=== PATIENT | male | born 1970 | race Caucasian/White ===

== ENCOUNTER 2016-09-16 16:42 | Inpatient (IN) | payer MEDICARE, MEDICAID ==
[~2016-09-16] VITALS: Ht 179.1 cm; Wt 115.9 kg
[~2016-09-16 16:42] MED LIST: ATEN-102 PO; OMEG306C PO; PAXI20TA26 PO; SAW160TA PO; VITA20002 PO
[2016-09-16 16:44] VITALS: BP 132/84; PULSE 70; RESP 20; TEMP 98.1; O2SAT 96
--- NOTE | 2016-09-16 18:01 | PD ---
HPI Chief Complaint: Psychiatric Symptoms Time Seen by Provider: 18:01 Travel History International Travel<30 days: No Contact w/Intl Traveler<30days: No Traveled to known affect area: No History of Present Illness HPI 46-year-old male with history of hydrocephalus, with shunt placement, hypertension, presents to the emergency department for evaluation of depression. Patient has been under a lot of stress and more more depressed. He has been having suicidal thoughts. He mentioned this to his primary care provider who advised to come to the emergency department for psychiatric evaluation. Patient states he has no active plan. No recent illnesses, fever, or chills. No acute medical needs at this time. PFSH Past Medical History Arthritis: Yes Asthma: Yes Anxiety: Yes Depression: Yes Cancer: No Cardiovascular Problems: No High Cholesterol: Yes Diabetes: No Diminished Hearing: No Endocrine: No Genitourinary: No Headaches: Yes Hepatitis: No Hiatal Hernia: No Hypertension: Yes Immune Disorder: No Musculoskeletal: Yes (arthritis in r hip) Neurologic: Yes (shunt last replaced 1997) Psychiatric: No Reproductive: No Respiratory: Yes (asthma as child) Immunizations Current: No Sleep Apnea: Yes Thyroid Disease: No Past Surgical History AICD: No Body Medical Devices: shunt , pins in l hip, bubble in l eye Eye Surgery: Yes (bilat cataract ) Joint Replacement: No Neurologic Surgery: Yes (shunt placement and revisions) Pacemaker: No Social History Alcohol Use: No Tobacco Use: No Substance Use: No Allergies-Medications (Allergen,Severity, Reaction): Coded Allergies: No Known Allergies (Unverified , 11/24/15) Reported Meds & Prescriptions Reported Meds & Active Scripts Active Reported Vitamin D-3 (Cholecalciferol) 2 000 Tab Unknown Dose PO DAILY Fish Oil ([place]-3 Fatty Acids) 306 Mg Cap Unknown Dose PO DAILY Saw [place] 160 Mg Tab Unknown Dose PO DAILY Paxil (Paroxetine HCl) 20 Mg Tab 20 Mg PO DAILY Atenolol 50 Mg Tab 50 Mg PO DAILY pt states he is out but may get rx filled today Review of Systems Except as stated in HPI: all other systems reviewed are Neg Physical Exam Narrative GENERAL: Well-nourished male patient, ambulatory and in no acute distress SKIN: Warm and dry. HEAD: Atraumatic. Normocephalic. EYES: Pupils are unequal with the left pupil 3 mm and the right being 2 mm. Patient is having surgery on the left adnexa week. No scleral icterus. No injection or drainage. ENT: No nasal bleeding or discharge. Mucous membranes pink and moist. NECK: Trachea midline. No JVD. CARDIOVASCULAR: Regular rate and rhythm. No murmur appreciated. RESPIRATORY: No accessory muscle use. Clear to auscultation. Breath sounds equal bilaterally. GASTROINTESTINAL: Abdomen soft, non-tender, nondistended. Hepatic and splenic margins not palpable. MUSCULOSKELETAL: No obvious deformities. No clubbing. No cyanosis. No edema. NEUROLOGICAL: Awake and alert. No obvious cranial nerve deficits. Motor grossly within normal limits. Normal speech. Data Data Last Documented VS Vital Signs Date Time Temp Pulse Resp B/P Pulse Ox O2 Delivery O2 Flow Rate FiO2 09/16/16 16:44 98.1 70 20 132/84 96 Room Air Orders Complete Blood Count With Diff (09/16/16 17:58) Basic Metabolic Panel (Bmp) (09/16/16 17:58) Psych Screen (09/16/16 17:58) Drug Screen, Random Urine (09/16/16 17:58) Alcohol (Ethanol) (09/16/16 17:58) Labs Laboratory Tests Test 09/16/16 18:20 White Blood Count 8.1 TH/MM3 Red Blood Count 5.07 MIL/MM3 Hemoglobin 15.5 GM/DL Hematocrit 45.2 % Mean Corpuscular Volume 89.3 FL Mean Corpuscular Hemoglobin 30.5 PG Mean Corpuscular Hemoglobin 34.2 % Concent Red Cell Distribution Width 13.2 % Platelet Count 235 TH/MM3 Mean Platelet Volume 8.1 FL Neutrophils (%) (Auto) 72.8 % Lymphocytes (%) (Auto) 20.3 % Monocytes (%) (Auto) 6.1 % Eosinophils (%) (Auto) 0.3 % Basophils (%) (Auto) 0.5 % Neutrophils # (Auto) 5.9 TH/MM3 Lymphocytes # (Auto) 1.6 TH/MM3 Monocytes # (Auto) 0.5 TH/MM3 Eosinophils # (Auto) 0.0 TH/MM3 Basophils # (Auto) 0.0 TH/MM3 CBC Comment DIFF FINAL Differential Comment Sodium Level 144 MEQ/L Potassium Level 3.6 MEQ/L Chloride Level 109 MEQ/L Carbon Dioxide Level 28.1 MEQ/L Anion Gap 7 MEQ/L Blood Urea Nitrogen 12 MG/DL Creatinine 1.15 MG/DL Estimat Glomerular Filtration 68 ML/MIN Rate Random Glucose 102 MG/DL Calcium Level 8.4 MG/DL Urine Opiates Screen NEG Urine Barbiturates Screen NEG Urine Amphetamines Screen NEG Urine Benzodiazepines Screen NEG Urine Cocaine Screen NEG Urine Cannabinoids Screen NEG Ethyl Alcohol Level LESS THAN 3 MG/DL MDM Medical Decision Making Medical Screen Exam Complete: Yes Emergency Medical Condition: Yes Medical Record Reviewed: Yes Differential Diagnosis Mood disorder versus personality disorder versus adjustment reaction disorder Narrative Course 46-year-old male presents to emergency room for evaluation. Patient has no acute medical needs. CBC and BMP are without acute concern. Toxicology is negative. Patient is medically cleared to undergo psychiatric screening for further evaluation and disposition. Mental health screening discussed with the patient. Psychiatric screen ordered. Diagnosis Primary Impression: Adjustment disorder with depressed mood Additional Impression: Suicidal thoughts Condition: Vee Santos Sep 16, 2016 18:01
[2016-09-16 18:48] LABS: AUTOMATED NEUTROPHIL # 5.9 TH/MM3 (1.8-7.7); BASOPHIL % 0.5 % (0.0-2.0); EOSINOPHIL % 0.3 % (0.0-4.0); HEMATOCRIT 45.2 % (39.0-51.0); HEMO FLAGS DIFF FINAL; LYMPH % 20.3 % (9.0-44.0); LYMPHOCYTE # 1.6 TH/MM3 (1.0-4.8); MEAN CELL VOLUME 89.3 FL (80.0-100.0); MEAN CORPUSCULAR HEMOGLOBIN 30.5 PG (27.0-34.0); MEAN CORPUSCULAR HGB CONC 34.2 % (32.0-36.0); MONO % 6.1 % (0.0-8.0); NEUT % 72.8 % (16.0-70.0); PLATELET COUNT 235 TH/MM3 (150-450); RED BLOOD COUNT 5.07 MIL/MM3 (4.50-5.90); RED CELL DISTRIBUTION WIDTH 13.2 % (11.6-17.2); WHITE BLOOD COUNT 8.1 TH/MM3 (4.0-11.0)
[2016-09-16 19:04] LABS: AMPHETAMINE, URINE NEG (NEG); BARBITURATES, URINE NEG (NEG); COCAINE, URINE NEG (NEG)
[2016-09-16 19:12] LABS: ANION GAP 7 MEQ/L (5-15); BICARBONATE 28.1 MEQ/L (21.0-32.0); BLOOD UREA NITROGEN 12 MG/DL (7-18); CHLORIDE 109 MEQ/L (98-107); GLOMERULAR FILTRATION RATE 68 ML/MIN (>89); POTASSIUM 3.6 MEQ/L (3.5-5.1); SODIUM (NA) 144 MEQ/L (136-145)
[2016-09-16 22:57] VITALS: BP_SYST 129; BP_SYST 140; BP_DIAS 64; BP_DIAS 68; PULSE 62; PULSE 64; RESP 18; O2SAT 96; O2SAT 97
[2016-09-16] MEDS ORDERED: ATEN50TA PO (23:01)
[2016-09-16] MEDS ORDERED: PAXI20TA PO (23:01)
[2016-09-16] MEDS ORDERED: ACETAMINOPHEN 325 MG TAB PO PRN (23:30)
[2016-09-16] MEDS ORDERED: ALUMINUM/MAGNESIUM/SIMETH 30 ML CUP PO PRN (23:30)
[2016-09-16] MEDS ORDERED: MAGNESIUM HYDROXIDE SUSP 30 ML CUP PO PRN (23:30)
[2016-09-16] MEDS ORDERED: LORazepam 0.5 MG TAB PO PRN (23:45)
[2016-09-16] MEDS ORDERED: LORazepam 2 MG/ML VIAL IM PRN (23:45)
[2016-09-17 02:14] VITALS: BP 132/66; PULSE 80; RESP 18; TEMP 97.4; O2SAT 96
[2016-09-17 05:30] LABS: ANION GAP 11 MEQ/L (5-15); AST (GOT) 12 U/L (15-37); BICARBONATE 26.2 MEQ/L (21.0-32.0); BLOOD UREA NITROGEN 12 MG/DL (7-18); CHLORIDE 109 MEQ/L (98-107); GLOMERULAR FILTRATION RATE 74 ML/MIN (>89); POTASSIUM 3.6 MEQ/L (3.5-5.1); SODIUM (NA) 146 MEQ/L (136-145)
[2016-09-17 05:39] LABS: ALKALINE PHOSPHATASE 62 U/L (45-117); ALT (GPT) 39 U/L (12-78); FREE T4 1.36 NG/DL (0.76-1.46); HDL CHOLESTEROL 44.8 MG/DL (40.0-60.0); LDL CHOLESTEROL 95 MG/DL (0-99); TOTAL BILIRUBIN ADULT 0.9 MG/DL (0.2-1.0)
[2016-09-17 06:03] VITALS: BP 150/85; PULSE 78; RESP 18; TEMP 97.5; O2SAT 96
[2016-09-17] MEDS: PARoxetine HCL 20 MG TAB PO SCH (08:56)
[2016-09-17 09:51] LABS: BLOOD, URINE NEG (NEG); COMMENT (UR) CULT NOT INDICATED; CULTURE IF INDICATED CULT NOT INDICATED; GLUCOSE,URINE NEG (NEG); KETONE, URINE NEG (NEG); MUCUS URINE FEW /lpf (OCC); NITRITE,URINE NEG (NEG); URINE COLOR YELLOW (YELLW/STRAW)
[2016-09-17] MEDS: ATENOLOL 50 MG TAB PO SCH (10:59)
--- NOTE | 2016-09-17 12:30 | MH ---
cc: AGUILA GOODMAN M.D. DATE OF ADMISSION: 09/16/2016 PRESENTING CHIEF COMPLAINT AND HISTORY OF PRESENT ILLNESS: This 46-year-old white male was brought to the emergency room voluntarily per recommendation of his primary care physician because of increasing depression and suicidal thoughts. He was evaluated by the psychiatric screener and the case was discussed with me and it was felt he needed to be hospitalized for further assessment treatment. It was reported that he is currently on Paxil prescribed to him by his primary care physician and does not have any history of previous psychiatric intervention. During this evaluation, he denied active suicidal intent or plan. Prior to the evaluation, the case was discussed with the nursing staff on the unit who indicated since admission he has been somewhat depressed-looking but overall pleasant and cooperative. He has not exhibited any aggressive or self-destructive behavior nor has he made any threats of harm to self or others. At the time of this evaluation, Mr. Marie looked somewhat depressed. When asked what his understanding of the reason for this hospitalization, he responded, "I was at my doctor's office and I had a breakdown. I started crying. I've been feeling depressed. I've been feeling anxious." He went on to state that about to week or so ago he was in his motorized wheelchair and it was raining and the wheelchair broke. Since then he mentioned that he has been feeling more depressed. He acknowledged suffering from depression off and on and being on antidepressants for the past 10 years. He could not identify any other significant psychosocial stressor. He stated that he has been crying frequently and has been having difficulty falling asleep and his appetite had declined. When further explored about the suicidal thoughts he responded, "I had these thoughts cross my mind but I have no intention. I will never do. I've never done anything like that." On further direct questioning, he did not give any history suggestive of bipolar affective disorder. Further exploration did not reveal any other significant psychosocial stressor. He is wheelchair-bound due because of hydrocephalus and is not able to ambulate. PAST PSYCHIATRIC HISTORY: He denied any previous psychiatric intervention. Specifically, he denied any previous psychiatric hospitalization. PAST MEDICAL HISTORY: He has history of: 1. Arthritis. 2. Asthma. 3. Hypertension. 4. Hydrocephalus and is status post ventriculoperitoneal shunt. 5. Sleep apnea. PAST SURGICAL HISTORY: 1. Ventriculoperitoneal shunt. 2. Hip surgery. ALLERGIES: He denied any drug allergies. MEDICATIONS: He is currently on: 1. Vitamin D. 2. Fish oil. 3. Saw [place]. 4. Paxil 20 milligrams daily. 5. Atenolol 50 milligrams p.o. daily. FAMILY HISTORY: His father is and his mother lives in [place]. He has two sisters. He denied any family history of psychiatric illness or substance abuse. PERSONAL AND SOCIAL HISTORY: He finished high school and attended [employer]. 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 He has been to his current for twelve years and they have one daughter who lives with them. His is gainfully employed. He denied any history of alcohol or drug abuse. He denied any history of physical or sexual trauma. CLINICAL OBSERVATION AND MENTAL STATUS EXAMINATION: At the time of this evaluation Mr. Marie presented as a casually dressed, reasonably well-groomed, bearded white male in a wheelchair. He was overall pleasant and cooperative with this interviewer and volunteered information. Some psychomotor retardation was noticed. His responses to questions were relevant and logical. No overt anger or hostility was noticed. No bizarre behavioral mannerisms were noticed. His speech was coherent and appropriate. His affect was depressed, constricted. Subjectively described his mood as, "I've been feeling depressed." There was no evidence of any thought disorder. No luana delusions, auditory or visual hallucinations were noticed or reported. He acknowledged entertaining suicidal thoughts prior to admission however denies it at this time. He also denied any intention or plan to harm himself or anybody else. He denied any previous suicide attempts. Cognitive functions he was alert, oriented to place, person and situation. Memory: Immediate: He could do five digits forward and four digits backward. Recent: Recent he could recall 2/3 objects after 10 minutes. Remote: He could recall presidents up to President Massimo. His attention and concentration was impaired. His could do serial sevens up to 79. His judgment and insight was felt to be good. REVIEW OF SYSTEMS: He denied any diarrhea, vomiting or abdominal pain. He denied any dysuria, hematuria or frequency. He denied any chest pain, palpitations, or dyspnea on exertion. He has been experiencing muscle weakness in both lower extremities. He denied any history of seizures. PHYSICAL EXAMINATION: Physical examination was not done as this has already been done in the emergency room. No acute medical issues were identified. DIAGNOSTIC IMPRESSION: AXIS I: Major depressive disorder moderate, recurrent. AXIS II: No diagnosis. AXIS III: Hypertension. Status post ventriculoperitoneal shirt shunt due to hydrocephalus. Arthritis. Obstructive sleep apnea. AXIS IV: Severity of psychosocial stressors moderate; i.e., chronic medical and psychiatric illness. AXIS V: Current GAF score 40. FORMULATION AND TREATMENT PLAN: Based on this evaluation and the background information available to me at this time, Mr. Marie is experiencing a moderate degree of depression as manifested by persistent feelings of sadness, neurovegetative symptoms. His depression is compounded by the above-identified psychosocial stressors. These will be addressed in individual psychotherapy sessions. To alleviate his depression, he will be continued on the Paxil but the dose will be gradually titrated and consideration will be given to adding Abilify. He will participate in various other unit activities; i.e,. occupational therapy, recreational therapy, group therapy. His identified problems are: 1. Depression. 2. Current psychosocial stressors. His assets are: 1. He is verbal. 2. Motivated seek help. Estimated length of stay is five to seven days. MD MARIN Wilks/ANDRAE /12:03 PM /12:17 PM
[2016-09-17 15:13] LABS: HEMOGLOBIN A1b 0.7 %; HEMOGLOBIN Ao 87.2 %; HEMOGLOBIN F 0.8 %; HEMOGLOBIN LA1C 1.7 %; HEMOGLOBIN P3 3.4 %
[2016-09-17 19:00] VITALS: BP 119/57; PULSE 76; RESP 17; TEMP 98.7; O2SAT 95
[2016-09-18 06:32] VITALS: BP 111/61; PULSE 80; RESP 18; TEMP 99.7; O2SAT 99
[2016-09-18] MEDS: ATENOLOL 50 MG TAB PO SCH (08:50)
[2016-09-18] MEDS: PARoxetine HCL 20 MG TAB PO SCH (08:50)
--- NOTE | 2016-09-18 14:11 | EKG ---
Date Performed: 09/17/2016 Time Performed: 22:10:57 PTAGE: 46 years EKG: Sinus rhythm LOW QRS VOLTAGE IN PRECORDIAL LEADS BORDERLINE ECG NO PREVIOUS TRACING DOCTOR: Wagner Dexter Interpretating Date/Time 09/18/2016 14:11:02
[2016-09-18 18:00] VITALS: BP 161/94; PULSE 69; RESP 18; TEMP 98.6; O2SAT 94
[2016-09-19 06:05] VITALS: BP 155/78; PULSE 81; RESP 18; TEMP 98.5; O2SAT 96
[2016-09-19] MEDS: ATENOLOL 50 MG TAB PO SCH (08:44)
[2016-09-19] MEDS: ARIPiprazole 2 MG TAB PO SCH (08:44)
[2016-09-19] MEDS: PARoxetine HCL 20 MG TAB PO SCH (08:44)
[2016-09-19 20:01] VITALS: BP 130/76; PULSE 76; RESP 16; TEMP 99; O2SAT 98
[2016-09-20 06:31] VITALS: BP 124/66; PULSE 71; RESP 18; TEMP 97.9; O2SAT 97
[2016-09-20] MEDS: ARIPiprazole 2 MG TAB PO SCH (08:46)
[2016-09-20] MEDS: ATENOLOL 50 MG TAB PO SCH (08:46)
[2016-09-20] MEDS: PARoxetine HCL 20 MG TAB PO SCH (08:46)
[2016-09-20 18:59] VITALS: BP 136/76; PULSE 81; RESP 18; TEMP 98.1; O2SAT 97
[2016-09-21 06:23] VITALS: BP 132/76; PULSE 79; RESP 16; TEMP 99.4; O2SAT 95
[2016-09-21] MEDS: PARoxetine HCL 20 MG TAB PO SCH (09:21)
[2016-09-21] MEDS: ATENOLOL 50 MG TAB PO SCH (09:21)
[2016-09-21] MEDS: ARIPiprazole 2 MG TAB PO SCH (09:21)
[2016-09-21 18:32] VITALS: BP 140/85; PULSE 77; RESP 16; TEMP 98.5; O2SAT 96
[2016-09-22 06:24] VITALS: BP 151/86; PULSE 81; RESP 16; TEMP 98.1; O2SAT 96
[2016-09-22] MEDS: PARoxetine HCL 20 MG TAB PO SCH (09:21)
[2016-09-22] MEDS: ATENOLOL 50 MG TAB PO SCH (09:21)
[2016-09-22] MEDS: ARIPiprazole 2 MG TAB PO SCH (09:21)
[2016-09-23 06:41] VITALS: BP 157/92; PULSE 87; RESP 18; TEMP 98.5; O2SAT 95
[2016-09-23] MEDS: ATENOLOL 50 MG TAB PO SCH (09:43)
[2016-09-23] MEDS: PARoxetine HCL 20 MG TAB PO SCH (09:44)
[2016-09-23] MEDS: ARIPiprazole 2 MG TAB PO SCH (11:14)
[2016-09-23] MEDS ORDERED: ABIL2TAB2 PO (13:30)
[2016-09-23] MEDS ORDERED: PARO20TA2 PO (13:30)
[2016-09-23] MEDS ORDERED: ATEN50TA PO (13:30)
--- NOTE | 2016-09-23 14:07 | MD ---
cc: AGUILA GOODMAN M.D. ADMISSION DATE: 09/16/2016 DISCHARGE DATE: 09/22/2016 [place] Visit Search.Discharge Date ADMISSION DIAGNOSES Cobb I: Major depressive disorder, moderate, recurrent. Cobb II: No diagnosis. Cobb III: Hypertension, status post ventriculoperitoneal shunt due to hydrocephalus, arthritis, obstructive sleep apnea. Cobb IV: Severity of psychosocial stressors moderate, i.e., chronic medical and psychiatric illness. Cobb V: Current GAF score 40. DISCHARGE DIAGNOSIS Cobb I: Major depressive disorder, moderate, recurrent. Cobb II: No diagnosis. Cobb III: Hypertension, status post ventriculoperitoneal shunt due to hydrocephalus, arthritis, obstructive sleep apnea. Cobb IV: Severity of psychosocial stressors moderate, i.e., chronic medical and psychiatric illness. Cobb V: Current GAF score 60. BRIEF HISTORY This 46-year-old white male was brought to the emergency room voluntarily per recommendation of primary care physician because of increasing depression and suicidal thoughts. Please refer to my initial evaluation for details. LABORATORY FINDINGS CBC with differential was unremarkable. CMP on 09/17/2016 showed serum sodium 146. Liver enzymes normal. Vitamin-D level 32.2. T4 and TSH normal. Urine drug screen negative. Blood alcohol level less than 3. Routine urinalysis unremarkable. HOSPITAL COURSE When initially evaluated Mr. Marie was somewhat anxious, depressed looking, and at times tearful. He seemed quite distressed by the damage to his motorized wheelchair prior to this hospitalization. To alleviate his depression he was continued on the Paxil and the dose was gradually titrated. Later Abilify was added. Initially during his hospital stay he was quite seclusive and withdrawn. As his depression began to lift he became to interact more and was observed sitting in the day room often. His sleep and appetite also improved. He no longer verbalized suicidal statements. Throughout this hospital stay he did not exhibit any aggressive or self-destructive behavior nor did he make any threats of harm to self or others. He attended the treatment team meeting the day before yesterday and it was felt by the treatment team that he has received optimum benefit out of this admission and could be discharged. At the time of discharge he is denying any suicidal or homicidal ideations. He is not exhibiting any acute psychotic symptoms. DISCHARGE MEDICATIONS 1. Abilify 2 mg p.o. daily, #10, one refill. 2. Atenolol 50 mg one p.o. daily, #10. 3. Paxil 20 mg one p.o. daily, #10 with one refill. He is to follow-up with Dr. Victor M Cordoba at [facility] and also to follow-up with the therapist there. In addition he is recommended to follow-up with his primary care physician. MD MARIN Wilks/JOSE RAFAEL /1:34 PM /1:54 PM
== END 2016-09-23 15:10 | disposition home or self-care (01) | DRG 885 ==
LOC: NETRI 16:42 → NEDA 23:22 → H260 09-17 09:00 → H250 09-22 18:40
PROVIDERS: ADMIT Psychiatry & Neurology Psychiatry; ATTEND Psychiatry & Neurology Psychiatry
DX: F33.1 Major depressive disorder, recurrent, moderate (principal); G91.9 Hydrocephalus, unspecified; I10 Essential (primary) hypertension; Z98.2 Presence of cerebrospinal fluid drainage device; G47.33 Obstructive sleep apnea (adult) (pediatric); M16.11 Unilateral primary osteoarthritis, right hip; E78.00 Pure hypercholesterolemia, unspecified; Z99.3 Dependence on wheelchair
CPT/HCPCS: 80048; 80053; 80061; 80307; 80320; 81001; 82306; 83036; 84439; 84443; 85025; 93005; 99284

== ENCOUNTER → 2016-11-16 | Day surgery (SDC) | payer MEDICARE ==
[~2016-11-16] MED LIST changes: +ABIL2TAB2 PO; -ATEN-102 PO; +ATEN50TA PO; +ATROPINE SULFATE 1% OPHT SOLN 2 ML BTL ONE; +DEXAMETHASONE SOD PHOS 4 MG/ML VIAL ONE; +EPINEPHrine HCL (1:1000) 1 MG/ML VIAL ONE; +FLURBIPROFEN 0.03% OPHT SOLN 2.5 ML BTL ONE; +HYALURONIDASE/LIDOCAINE/BUPIVACAINE 11 ML SYR TL ONE; +LACTATED RINGER'S 1000 ML INJ 1,000 ML ONE; +NEOMYCIN/POLYMYXIN/DEXAMETHASONE OPTH OINT 3.5 GM TUBE ONE; -OMEG306C PO; +PARO20TA2 PO; +PAXI20TA PO; -PAXI20TA26 PO; +PHENYLEPHRINE HCL 2.5 % OPTH SOLN 15 ML BTL ONE; +PROPOFOL 200 MG/20 ML AMP IV ONE; -SAW160TA PO; +SODIUM CHLORIDE 0.9% INJ 10 ML ONE; +TRIAMCINOLONE ACETONIDE 40 MG/ML VIAL ONE; +TROPICAMIDE 1% OPHT SOLN 15 ML BTL ONE; -VITA20002 PO; +ceFAZolin INJ 1,000 MG VIAL ONE
--- NOTE | 2016-12-04 19:28 | MP ---
cc: BHARATH CROFT MD DATE OF SURGERY: PREOPERATIVE DIAGNOSIS: Epiretinal membrane, left eye. POSTOPERATIVE DIAGNOSIS: 1. Epiretinal membrane, left eye. 2. Retinal hole, left eye. OPERATION: Pars plana vitrectomy, membrane peeling, endolaser, left eye. SURGEON: Bharath Croft MD ANESTHESIA: MAC. COMPLICATIONS: None. DESCRIPTION OF THE PROCEDURE IN DETAIL: After informed consent was obtained, the patient was brought to the operating room, placed under brief anesthesia with Propofol. 10 cc of 50/50 mixture of 0.75% Marcaine 2% Lidocaine was placed in a modified [place] Lint lid block as well as peribulbar injection. The patient was then prepared and draped in usual sterile fashion. A wide lid speculum was placed in the patient's ?? eye. A 23-gauge vitrectomy cannulas were then placed in the lower temporal, superotemporal and superonasal quadrants 3 mm posterior to the cornea scleral limbus. Infusion cannula was placed lower temporally. A core vitrectomy was then performed. The vitrectomy is carried out as far as possible to vitreous space. Attention was then turned to the posterior pole where there was an epiretinal membrane covering the surface of the macula. It was carefully peeled off the macula with intraocular forceps. The same was then done for the internal limiting membrane. Careful indirect ophthalmoscopy with scleral depression was then performed and no peripheral retinal breaks were noted. The three vitrectomy cannulas were then removed. Subconjunctival injections of dexamethasone and Ancef were placed. An Atropine drop, Maxitrol ointment and a patch shield were then applied. The patient tolerated the procedure well. There were no complications. [facility]. ADDENDUM: There was a small retinal hole in the superotemporal quadrant in the mid-periphery which was lasered with endolaser. Bharath Croft MD TAB/JC /11:15 AM /7:23 PM
== END | disposition home or self-care (01) ==
LOC: ESDC 12:47
PROVIDERS: ATTEND Ophthalmology Retina Specialist
DX: H35.372 Puckering of macula, left eye (principal)
CPT/HCPCS: 00145; 67043; J0171; J0690; J1100; J7120; J3301